=== PATIENT | female | born 1960 | race Caucasian/White ===

== ENCOUNTER 2016-12-27 22:44 | Observation (INO) | payer OTHER ==
[~2016-12-27] VITALS: Ht 157.5 cm; Wt 100.9 kg
[~2016-12-27 22:44] MED LIST: ACET-2404 PO; IBUP200T48 PO; LEVO125T6 PO
[2016-12-27 22:46] VITALS: BP 130/79; PULSE 68; RESP 16; O2SAT 98
--- NOTE | 2016-12-27 23:19 | ED.REPORT ---
HPI-General Illness Date of Service Dec 27, 2016 ED Provider: Mauricio Villanueva MD Patient is a 56 year old female who presents to the ED with epigastric abdominal pain that began after dinner tonight. The patient reports burning pain , which radiates into her back. She reports causing herself to vomit due to the discomfort. Patient reports occasional heartburn, but states that it is infrequent. The patient denies a history of cholecystectomy or pancreatitis. She denies a fever. Nursing Notes Stated Complaint: CHEST PAIN, BACK PAIN, ABDOMINAL PAIN Chief Complaint: Female Abdominal Pain Nursing Notes Reviewed: Yes Allergies: Coded Allergies: No Known Allergies (Verified , 12/27/16) Scheduled Levothyroxine (Levothyroxine) 125 Mcg Tablet 125 MCG PO DAILY Levothyroxine (Levothyroxine) 125 Mcg Tablet 125 MCG PO DAILY Scheduled PRN Acetaminophen (Tylenol Extra Strength) 500 Mg Tablet 500 MG PO PRN PRN PRN For Pain Ibuprofen (Ibuprofen) 200 Mg Tablet 200 MG PO PRN PRN PRN For Pain General Time Seen by MD: 23:19 Chief Complaint Abdominal pain Hx Obtained From: Patient Arrived By: Walk-in Sudden in Onset?: No Onset Occurred: 1 - 4 hours ago Symptom Duration: Since onset Location: : Abdomen Quality: Burning, Painful Radiation: : Back Severity: Current: Moderate Severity: Maximum: Severe Recent Healthcare: No recent doctor visit, No recent hospitalization Similar Sx Previous: No Past Medical History Past Medical History history of left-sided invasive ductal carcinoma s/p lumpectomy and radiation Denies: Pancreatitis Past Surgical History left breast lumpectomy Reports: , Denies: Cholecystectomy Smoking History Smoker Current Status UNK Social History Alcohol Use: "Social" Other Social History: Good social support, Local resident Ambulatory Status Independent Review of Systems Full Review of Systems Constitutional: Denies: Chills, Fever GI: Reports: Abdominal pain, Nausea, Vomiting Musculoskeletal: Reports: Back pain Complete sys rev & neg: except as marked. Physical Exam Vital Signs Vital Signs Date Time Temp Pulse Resp B/P Pulse Ox O2 Delivery O2 Flow Rate FiO2 12/28/16 02:06 36.6 72 18 130/72 95 Room Air 12/27/16 22:46 36.2 68 16 130/79 98 Initial VS: Reviewed Skin: Warm, Dry, No cyanosis Neurologic: Alert, Oriented, Nonfocal Psychiatric: Mood/affect normal, Behavior normal, Normal thought content General/Constitutional: Awake, Alert, No acute distress, Well hydrated Appearance / Presentation: Positive: Uncomfortable Head / Eyes: Normocephalic, PERRL, No scleral icterus ENT: Airway patent, Mucous membranes moist Neck: Supple, Full range of motion Respiratory / Chest: Breath sounds NL, Breath sounds = bilat, No respiratory distress, No rales, No rhonchi, No wheezing, No chest tenderness (no sternal tenderness) Cardiovascular: Heart rate NL, Regular rhythm, No murmurs Abdomen: Soft Tenderness/Guarding/Rebound: Positive: Tender RUQ..., Tender epigastric (upper epigastrium) Upper Extremities Upper Extremity / MS: No swelling, No edema Lower Extremity / Pelvis / MS: No swelling, No edema Interpretation & Diagnostics Lab Results Interpretation Result Diagram: 12/28/16 0032 12/28/16 0032 Test 12/28/16 00:32 12/28/16 00:55 12/28/16 01:18 White Blood Count 8.9th/mm3 (3.8-10.1) Red Blood Count 4.66mil/mm3 (3.90-5.20) Hemoglobin 14.4g/dL (12.0-15.6) Hematocrit 43.0% (35.0-46.0) Mean Corpuscular Volume 92.3fL (81-100) Mean Corpuscular Hemoglobin 30.9pg (27.0-35.0) Mean Corpuscular Hemoglobin Concent 33.5% (32.0-37.0) Red Cell Distribution Width 12.9% (12.3-15.4) Platelet Count 169bil/L (150-400) Neutrophils (%) (Auto) 85.8% (40-74) Lymphocytes (%) (Auto) 9.4% (14-46) Monocytes (%) (Auto) 3.3% (4-12) Eosinophils (%) (Auto) 0.6% (0-5) Basophils (%) (Auto) 0.2% (0-3) Sodium Level 139mEq/L (134-144) Potassium Level 4.5mEq/L (3.5-5.2) Chloride Level 100mEq/L (97-108) Carbon Dioxide Level 25mmol/L (18-29) Blood Urea Nitrogen 14mg/dL (6-24) Creatinine 0.64mg/dL (0.57-1.00) Estimat Glomerular Filtration Rate 139mL/min (>59) Glucose Level 131mg/dL (60-99) Calcium Level 9.4mg/dL (8.5-10.1) Magnesium Level 2.0mg/dL (1.6-2.6) Total Bilirubin 1.0mg/dL (0.0-1.2) Aspartate Amino Transf (AST/SGOT) 106U/L (0-50) Alanine Aminotransferase (ALT/SGPT) 75U/L (0-32) Alkaline Phosphatase 83U/L (25-150) Total Protein 7.1g/dL (6.4-8.4) Albumin 4.2g/dL (3.4-5.0) Lipase 21U/L (13-60) Prothrombin Time 9.7sec (8.1-12.5) Prothromb Time International Ratio 0.91ratio Lactic Acid Level 2.6mmol/L (0.4-2.0) Urine Color Yellow (YELLOW) Urine Appearance Clear (CLEAR,HAZY) Urine pH 8.0 (5.0-8.0) Urine Specific [place] 1.015 (1.003-1.035) Urine Protein Negativemg/dL (NEG,TRACE) Urine Glucose (UA) Negativemg/dL (NEGATIVE) Urine Ketones Negativemg/dL (NEGATIVE) Urine Occult Blood Negative (NEGATIVE) Urine Nitrite Negative (NEGATIVE) Urine Bilirubin Negative (NEGATIVE) Urine Urobilinogen Normalmg/dL (NORMAL) Urine Leukocyte Esterase Negative (NEGATIVE) Urine RBC 0-2/hpf (0-2) Urine WBC 0-5/hpf (0-5) Urine Epithelial Cells Occasional/hpf (NONE-MOD) Urine Crystals None seen (NONE SEEN) Urine Bacteria None/hpf (NONE-FEW) Urine Hyaline Casts None/lpf (NONE) Urine Granular Casts None seen (NONE SEEN) Urine Waxy Casts None seen (NONE SEEN) Urine Red Blood Cell Casts None seen (NONE SEEN) Urine White Blood Cell Casts None seen (NONE SEEN) Urine Mucus None seen (None Seen) Urine Trichomonas None seen (NONE SEEN) Urine Yeast None (NONE SEEN) Urinalysis Comment None Urine Culture Reflexed Not indicated CT Abd / Pelvis Interpretation CONCLUSION: Cholelithiasis with findings that may be consistent with acute cholecystitis. Ultrasound correlation may be helpful for confirmation. Colonic diverticulosis. Radiologist: Rianna Briseno MD 12/28/2016 - 1:54:42 AM PST Study type: Abdominal CT IV contrast Interpretation / Wet Read by: Interpret - Radiologist Re-Eval/Medical Decision Med Decision/Clinical Course 56-year-old presents with right upper quadrant and epigastric abdominal pain radiated through to her back. Spent persistent now for more than four hours. Labs are notable for elevated transaminases but a normal bilirubin and normal alkaline phosphatase. CT shows a gallstone in the neck of the gallbladder, thickening of the gallbladder wall and localized stranding consistent with cholecystitis. She is admitted to surgical service for surgical management. Source of Hx: Old records Time of Eval: 02:09 Patient Status: Condition improved Re-Evaluation/Progress Note: Rechecked the patient to discuss the results of her labs and CT scan. Findings are suggest of acute cholecystitis. She will need to be admitted to the hospital for surgery. Patient understands and agrees with this plan. All questions were addressed. Consultation : Referral / Consult Name: Vibha Nolan MD Consulted With: Surgeon Call Returned at: 03:11 Reiki Practitioner: Will see patient, Agrees with eval, Agrees with plan, Accepts admit Note: Spoke with Dr. Nolan, surgeon, who agrees to accept admit. Counseled Regarding: Diagnosis, Lab results, Need for admission Discharge & Departure Primary Impression: Acute cholecystitis Additional Impression: Cholelithiasis Cholelithiasis location: gallbladder Cholecystitis presence: with cholecystitis Cholecystitis acuity: acute Biliary obstruction: without biliary obstruction Qualified Code: K80.00 - Calculus of gallbladder with acute cholecystitis without obstruction Disposition: ADMITTED TO HOSPITAL Discharge Condition All VS Reviewed: Yes Condition: Stable Referrals: Yosef Sutherland MD (PCP) Leo Attestation Portions of this note were transcribed by Emilie Palma. I, Dr. Villanueva personally performed the history, physical exam and medical decision-making; I reviewed and confirmed the accuracy of the information in the transcribed note. Signed by: Leo Anderson, 12/28/2016 [id number] copies to: Yosef Sutherland MD, Christopher W MD Dec 27, 2016 23:19 Emilie Palma 3, 2017 23:36
[2016-12-27] MEDS ORDERED: 0.9% Sodium Chloride 1,000 ML IV ONE (23:32)
[2016-12-27] MEDS ORDERED: Pantoprazole 4 mg/mL 10 mL Inj IVPUSH ONE (23:35)
[2016-12-27] MEDS ORDERED: HYDROmorphone 1 mg/mL Inj IVPUSH PRN (23:35)
[2016-12-27] MEDS ORDERED: Ondansetron 2 mg/mL 2 mL Inj IVPUSH ONE (23:35)
[2016-12-28] VITALS (9 sets, daily range): BP systolic 111–146; BP diastolic 70–77; PULSE 66–97; RESP 16–20; O2SAT 95–98
[2016-12-28 00:48] LABS: BASOPHILS % (AUTO) 0.2 % (0-3); EOSINOPHILS % (AUTO) 0.6 % (0-5); MONOCYTES % (AUTO) 3.3 % (4-12); Mean Corpuscular Hemoglobin 30.9 pg (27.0-35.0); Mean Corpuscular Volume 92.3 fL (81-100); NEUTROPHILS % (AUTO) 85.8 % (40-74); Platelet Count 169 bil/L (150-400)
[2016-12-28 01:19] LABS: INR 0.91 ratio
[2016-12-28 01:35] LABS: APPEARANCE,URINE CLEAR (CLEAR,HAZY); COLOR,URINE YELLOW (YELLOW); OCCULT BLOOD,URINE NEGATIVE (NEGATIVE); UROBILINOGEN,URINE NORMAL (NORMAL)
[2016-12-28] MEDS ORDERED: Piperacillin-Tazo 3.375 Gm Inj 3.375 GM in Dextrose 5% Minibag Plus 50 ML IV ONE (02:45)
[2016-12-28] MEDS ORDERED: Ondansetron 2 mg/mL 2 mL Inj IVPUSH PRN ×3 (03:55→10:05)
[2016-12-28] MEDS ORDERED: MetoCLOpramide 5 mg/mL 2 mL Inj IVPUSH PRN ×2 (03:55→10:05)
[2016-12-28] MEDS ORDERED: HYDROmorphone PCA 0.2 mg/mL 30 mL Inj IV PRN (03:55)
--- NOTE | 2016-12-28 04:24 | NUR ---
Admit Patient arrived at 0424 via gurney, able to ambulate self into bed. C/O chest pressure, but tolerable. A&O, able to make needs known. Oriented to room. NPO in preparation for surgery in the am
[2016-12-28] MEDS ORDERED: LEVO125T6 PO (05:05)
[2016-12-28] MEDS: Lactated Ringer's 1,000 ML IV SCH ×2 (06:03→10:04)
--- NOTE | 2016-12-28 08:26 | DRSVH ---
PROCEDURE: CT ABDOMEN AND PELVIS WITH CONTRAST ([id number]) INDICATIONS: epigastric pain TECHNIQUE: After the administration of intravenous contrast, 5 mm thick sections acquired from the diaphragm to the symphysis. 5 mm coronal and sagittal reformats were acquired. For radiation dose reduction, the following was used: automated exposure control, adjustment of mA and/or kV according to patient siz e. COMPARISON: None. FINDINGS: Image quality: Excellent. ABDOMEN: Lung bases: Lung bases are clear. Heart size is normal. Solid organs: Liver and spleen are normal in size and enhancement. Diffuse fatty infiltration of the liver is noted. Gallbladder contains calcified gallstones. Gallbladder wall is thickened with trace pericholecystic fluid. Findings concerning for acute cholecystitis.. Biliary system is non dilated. Pancreas enhances normally. No adrenal nodules. Kidneys demonstrate normal size and enhancement, w ithout hydronephrosis. Peritoneum and bowel: Bowel loops demonstrate normal wall thickness and caliber. Scattered diverticu la noted in the colon without evidence of diverticulitis. 1.2 cm duodenal lipoma incidentally noted. No free fluid or air. The appendix is normal. Nodes and vessels: No retroperitoneal or mesenteric adenopathy by size criteria. Aorta and inferior vena cava are normal in size. Scattered atherosclerotic calcifications noted in the abdominal pelvic vasculature. Miscellaneous: No ventral hernias. PELVIS: Genitourinary: Bladder wall thickness is normal. Miscellaneous: No inguinal hernias or adenopathy. Bones: No suspicious bony lesions. No vertebral body compression fractures. Spine degenerative disc disease and facet arthropathy are noted. IMPRESSION: 1. Cholelithiasis with gallbladder wall thickening and trace pericholecystic fluid concerning for acu te cholecystitis. Please correlate with clinical data. 2. Hepatic steatosis. 3. Colonic diverticulosis without evidence of diverticulitis. Dictated by: Kaylyn Mueller MD, PhD on 12/28/2016 at 8:20 Approved by: Kaylyn Mueller MD, PhD on 12/28/2016 at 8:24
[2016-12-28] MEDS ORDERED: Piperacillin-Tazo 3.375 Gm Inj 3.375 GM in Dextrose 5% Minibag Plus 50 ML IV SCH (08:30)
--- NOTE | 2016-12-28 09:29 | HP ---
[address] [address] HISTORY AND PHYSICAL PATIENT: SYMONE DUCKWORTH : 1960 MR#: [id number] ADMIT: 12/28/2016 JOB ID: [id number] CHIEF COMPLAINT: Episodic abdominal pain. HISTORY OF PRESENT ILLNESS: The patient is a 56-year-old relatively healthy woman who presented to the emergency department last night with complaint of abdominal pain and burning sensation. She stated that the pain began shortly after eating hot dogs and beans. She experienced some vomiting. When the pain did not resolve, she went to the emergency department. There she was found to have a normal white blood cell count. CT scan of the abdomen and pelvis was obtained which I have personally reviewed. This shows cholelithiasis and some pericholecystic fluid suggestive of possible acute cholecystitis. In retrospect the patient recalls having a similar episode a couple of weeks ago. However, at that time, the pain only lasted for about 30 minutes and then resolved spontaneously. This morning, the patient's pain has resolved. PAST MEDICAL HISTORY: Hypothyroid. MEDICATIONS: Synthroid. ALLERGIES: The patient is not sure whether she has no known allergies or possibly SULFA. PAST SURGICAL HISTORY: 1. Left breast partial mastectomy. 2. x2. FAMILY HISTORY: Family history significant for an uncle who had cholecystitis. 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 REVIEW OF SYSTEMS: Full review of systems is obtained and negative. Her pain has resolved. She has no nausea or vomiting. She has no other symptoms. PHYSICAL EXAMINATION: This morning, she is afebrile with a temperature of 37 degrees, heart rate 66 beats per minute. Blood pressure is 143/72. She is satting 97% on room air with a respiratory rate of 20 breaths per minute. In general, she appears comfortable in no acute distress. Cardiovascular: She has a regular rate and rhythm with no appreciated murmurs, rubs, gallops. Pulmonary: Her lungs clear to auscultation bilaterally. Vascular: She has no carotid bruit. Neck: She has no thyromegaly. Lymph: She has no cervical lymphadenopathy. GI: Her abdomen is soft, nondistended. She does have some focal tenderness to palpation in the right upper quadrant. Extremities: Warm without significant edema. Skin is warm without rash. Neuro is grossly intact. Psych: Pleasant and appropriate. LABORATORIES: Upon admission just after midnight, her white blood cell count was 8.9, hematocrit was 43. Her platelet count was 169. Her creatinine was 0.64. Her bilirubin was 1. AST and ALT were mildly elevated at 106 and 75. Alk phos was normal at 83. INR was 0.91. IMAGING: CT scan is personally reviewed and as per the HPI. ASSESSMENT AND PLAN: This is a 56-year-old female with episodic abdominal pain suggestive of symptomatic cholelithiasis. I discussed the diagnosis of symptomatic cholelithiasis with the patient and indications for surgery. At this point she does not appear to have acute cholecystitis as her pain has resolved. However, it is advisable to remove her gallbladder. I offered her cholecystectomy today versus elective date down the road. She prefers to move forward today. This will be done as soon as the operating room is available.
--- NOTE | 2016-12-28 09:45 | NUR ---
To OR Patient went to OR for Surgery approx 0900. Report to OR nurse given. NPO after midnight.
[2016-12-28] MEDS ORDERED: Bupivacaine 0.5%/EPI 50 mL Inj INFILTRATE ONE (10:01)
[2016-12-28] MEDS ORDERED: Lactated Ringer's 500 ML IV PRN (10:01)
[2016-12-28] MEDS ORDERED: Lactated Ringer's 1,000 ML IV SCH (10:01)
--- NOTE | 2016-12-28 10:01 | PCM.HPANE ---
Patient Data Date of Service: Dec 28, 2016 Surgeon Admitting Provider:Vibha Nolan MD Attending Provider:Vibha Nolan MD Primary Care Physician:Yosef Sutherland MD Other Provider: Reason for Visit Acute Polycholecystitis Ht/WT & BMI Height (Feet): 5 Height (Inches): 2.00 Weight (Kilograms): 100.900 Body Mass Index 40.93 Allergies Coded Allergies: No Known Allergies (Verified , 12/27/16) Past Anesthesia History Anesthesia History: Positive for:: Anesthesia Reactions (Difficult to awaken.) Diabetes History Hx Diabetes?: No MRSA MRSA: No Medications Reported Medications Levothyroxine 125 Mcg [id number] Mcg PO DAILY For Thyroid Replacement Ref 0 12/28/16 Levothyroxine 125 Mcg [id number] Mcg PO DAILY For Thyroid Replacement Ref 0 04/01/14 Ibuprofen 200 Mg [id number] Mg PO PRN PRN For Pain Ref 0 04/01/14 Acetaminophen (Tylenol Extra Strength)500 Mg [id number] Mg PO PRN PRN For Pain 04/01/14 History History of ENT Problems?: No Hx of Heart Problems?: No Cardiovascular History: Denies:: Congestive Heart Failure Hypertension Hx of Respiratory Problem?: Yes Respiratory History: Positive for:: Pneumonia (10 years ago) Denies:: Tuberculosis Hx Neurologic Problems?: No Hx of GI Problems?: Yes Gastrointestinal History: Positive for:: Gall Bladder Disease Other GI Pertinent History: Gallbladder inflammation Hx of Problems?: Yes Genitourinary History: Positive for:: Urinary Tract Infection (when younger) Female Hx: Denies:: Currently Endometriosis Pelvic Inflammatory Hx Musculoskeletal Problems?: No Musculoskeletal History: Positive for:: Back Injury Hx of Psycho/Social Problems?: No Hx Surgeries?: Yes Hx Any Other Health Problems?: No Other History: Positive for:: Cancer (Breast CA 2006) Hospitalization (Two births.) Thyroid Disease (Hypo 125mg levo once a day) History Blood Transfusions: Positive for:: Accept Blood Products? Denies:: Blood Transfusions Hx Diabetes: No Hx Alcohol Use: NoHx Substance Use: No Smoking Status: Smoker Current Status UNK Have You Smoked inLast 12 mo: YesApprox How Many Cigarettes/day: 20 Stop/Bang Treated for Sleep Apnea?: No Do You Have a CPAP Machine?: No S-Snoring: Do You Snore Loudly: Yes T-Tired: feel tired, fatigued: Yes O-Obsered: Observed not breath: Yes P-Blood Pressure: treated: No B- Body Mass Index > 35 kg/m2: Yes A- Age over 50: Yes N- Neck Large Circumference: Yes G- Gender Male: No NILAY Total Score: 6 NILAY Risk Assessment: High Risk, =/>3 Yes Risk Assessment Category Category 1A: Patient has history of documented sleep apnea, and HAS NOT received any narcotic, sedative or anesthesia administration during this stay. Category 1B: Patient has history of documented sleep apnea, and HAS received any narcotic , sedative or anesthesia administration during this stay Category 2: Patient has SUSPECTED Obstructive Sleep Apnea, and HAS received any narcotic , sedative or anesthesia administration during this stay. Category 3: Patient has SUSPECTED Obstructive Sleep Apnea and HAS NOT received narcotic, sedative or anesthesia administration during this stay. Category 4: Outpatient in Procedural Areas with known sleep apnea or who screen positive for High Risk via the STOP/BANG questionnaire. Exam Exam Vital Signs Vital Signs Date Time Temp Pulse Resp B/P Pulse Ox O2 Delivery O2 Flow Rate FiO2 12/28/16 04:39 37.0 66 20 143/72 97 Room Air 12/28/16 04:13 36.6 72 18 130/72 95 Room Air 12/28/16 02:06 36.6 72 18 130/72 95 Room Air General Appearance: Alert, Oriented X3, Cooperative HEENT/AIRWAY: MP 3, Neck Movement (Thick, OK extension), Mouth Opening (OK) Lungs: Clear to Auscultation, Normal Air Movement Heart: Regular Rate/Rhythm, Normal S1, Normal S2 Meds/Labs/Diagnostics Admission Meds Current Medications Sodium Chloride (Normal Saline) 1,000 ml @ 0 mls/hr Q0M ONCE IV Last administered on 12/28/16 00:59; Start 12/27/16 at 23:32; Stop 12/27/16 at 23:35; Status DC Pantoprazole (Protonix Inj) 40 mg ONCE ONCE IVPUSH Last administered on 00:59; Start 12/27/16 at 23:35; Stop 12/27/16 at 23:36; Status DC Ondansetron HCl 8 mg 8 mg ONCE ONCE IVPUSH Last administered on 12/28/16 00:59 ; Start 12/27/16 at 23:35; Stop 12/27/16 at 23:36; Status DC Piperacillin Sod/ Tazobactam Sod 3.375 gm/Dextrose/ Water 50 ml @ 100 mls/hr ONCE ONCE IV Last administered on 12/28/16 03:00; Start 12/28/16 at 02:45; Stop 12/28/16 at 03:14; Status DC Lactated Ringer's 1,000 ml @ 100 mls/hr Q10H IV Last administered on 12/28/16 06:03; Start 12/28/16 at 03:54 Piperacillin Sod/ Tazobactam Sod/ Dextrose/Water (Zosyn 3.375 Gm Inj/D5W Minibag Plus) 50 ml @ 12.5 mls/hr Q8 IV Last administered on 12/28/16 08:01; Start 12/28/16 at 08:30 Labs Test 12/28/16 00:32 12/28/16 00:55 12/28/16 01:18 White Blood Count 8.9th/mm3 (3.8-10.1) Red Blood Count 4.66mil/mm3 (3.90-5.20) Hemoglobin 14.4g/dL (12.0-15.6) Hematocrit 43.0% (35.0-46.0) Mean Corpuscular Volume 92.3fL (81-100) Mean Corpuscular Hemoglobin 30.9pg (27.0-35.0) Mean Corpuscular Hemoglobin Concent 33.5% (32.0-37.0) Red Cell Distribution Width 12.9% (12.3-15.4) Platelet Count 169bil/L (150-400) Neutrophils (%) (Auto) 85.8% (40-74) Lymphocytes (%) (Auto) 9.4% (14-46) Monocytes (%) (Auto) 3.3% (4-12) Eosinophils (%) (Auto) 0.6% (0-5) Basophils (%) (Auto) 0.2% (0-3) Sodium Level 139mEq/L (134-144) Potassium Level 4.5mEq/L (3.5-5.2) Chloride Level 100mEq/L (97-108) Carbon Dioxide Level 25mmol/L (18-29) Blood Urea Nitrogen 14mg/dL (6-24) Creatinine 0.64mg/dL (0.57-1.00) Estimat Glomerular Filtration Rate 139mL/min (>59) Glucose Level 131mg/dL (60-99) Calcium Level 9.4mg/dL (8.5-10.1) Magnesium Level 2.0mg/dL (1.6-2.6) Total Bilirubin 1.0mg/dL (0.0-1.2) Aspartate Amino Transf (AST/SGOT) 106U/L (0-50) Alanine Aminotransferase (ALT/SGPT) 75U/L (0-32) Alkaline Phosphatase 83U/L (25-150) Total Protein 7.1g/dL (6.4-8.4) Albumin 4.2g/dL (3.4-5.0) Lipase 21U/L (13-60) Prothrombin Time 9.7sec (8.1-12.5) Prothromb Time International Ratio 0.91ratio Lactic Acid Level 2.6mmol/L (0.4-2.0) Urine Color Yellow (YELLOW) Urine Appearance Clear (CLEAR,HAZY) Urine pH 8.0 (5.0-8.0) Urine Specific [place] 1.015 (1.003-1.035) Urine Protein Negativemg/dL (NEG,TRACE) Urine Glucose (UA) Negativemg/dL (NEGATIVE) Urine Ketones Negativemg/dL (NEGATIVE) Urine Occult Blood Negative (NEGATIVE) Urine Nitrite Negative (NEGATIVE) Urine Bilirubin Negative (NEGATIVE) Urine Urobilinogen Normalmg/dL (NORMAL) Urine Leukocyte Esterase Negative (NEGATIVE) Urine RBC 0-2/hpf (0-2) Urine WBC 0-5/hpf (0-5) Urine Epithelial Cells Occasional/hpf (NONE-MOD) Urine Crystals None seen (NONE SEEN) Urine Bacteria None/hpf (NONE-FEW) Urine Hyaline Casts None/lpf (NONE) Urine Granular Casts None seen (NONE SEEN) Urine Waxy Casts None seen (NONE SEEN) Urine Red Blood Cell Casts None seen (NONE SEEN) Urine White Blood Cell Casts None seen (NONE SEEN) Urine Mucus None seen (None Seen) Urine Trichomonas None seen (NONE SEEN) Urine Yeast None (NONE SEEN) Urinalysis Comment None Urine Culture Reflexed Not indicated Plan Impression Patient chart reviewed, patient interviewed and anesthestic plan with risks, benefits, and alternatives discussed, and informed consent obtained. NPO Status: > 8 hours ASA Physical Status: ASA3 Severe Disease Anesthetic Plan: GA Bene/Risks/Altern/Consents: Yes HP Complete Prior to Induction: Yes Shashi Goldstein MD Dec 28, 2016 08:59
[2016-12-28] MEDS ORDERED: Dexamethasone 4 mg/mL Inj IVPUSH PRN (10:05)
[2016-12-28] MEDS ORDERED: Labetalol 5 mg/mL 4 mL Inj IV PRN (10:05)
[2016-12-28] MEDS ORDERED: hydrALAZINE 20 mg/mL Inj IVPUSH PRN (10:05)
[2016-12-28] MEDS ORDERED: HYDROmorphone 1 mg/mL Inj IVPUSH PRN (10:05)
[2016-12-28] MEDS ORDERED: Atropine 0.4 mg/mL Inj IVPUSH PRN (10:05)
[2016-12-28] MEDS ORDERED: EPHEDrine Sulfate 50 mg/mL Inj IVPUSH PRN (10:05)
[2016-12-28] MEDS ORDERED: fentaNYL-PF 50 mCg/mL 2 mL Inj IVPUSH PRN (10:05)
[2016-12-28] MEDS ORDERED: Phenylephrine 10,000 mCg/mL Inj IVPUSH PRN (10:05)
--- NOTE | 2016-12-28 10:46 | PCM.ANEP1 ---
Post Anesthesia Phase 1 PACU Phase 1 Assessment Date of Service: Dec 28, 2016 Vital Signs Vital Signs Date Time Temp Pulse Resp B/P Pulse Ox O2 Delivery O2 Flow Rate FiO2 12/28/16 10:40 36.8 88 20 146/70 97 Simple Mask 8 12/28/16 04:39 37.0 66 20 143/72 97 Room Air 12/28/16 04:13 36.6 72 18 130/72 95 Room Air Anesthetic Administered: GA Level of Alertness: Sleepy, easy to arouse GUERRERO's with Equal Strength: Yes Pain: No Nausea or Vomiting: No Oxygen Delivery: Simple Mask Lungs: Normal Air Movement Shashi Goldstein MD Dec 28, 2016 10:46
--- NOTE | 2016-12-28 10:51 | PCM.DISURG ---
Surgical Discharge Instruction Date of Service Dec 28, 2016 Dates of Hospitalization Date of Hospital Admission Dec 28, 2016 at 03:36 Providers Admitting Physician: Vibha Nolan MD Primary Care Physician: Yosef Sutherland MD Attending Physician: Vibha Nolan MD Discharge Diagnosis Discharge Diagnosis cholecystitis Diet Discharge Diet: No restrictions Activity Discharge Activity-General: Be up and about, No driving while taking narcotic Dressing and Incisional Care Dressing Care: Allow Steri Stripes to fall off, Remove outer dressing after 24 hrs Hygiene: May shower, NO bathtub, hot tub or whirlpool Follow Up Plan Follow Up Plan f/u with Zoraida in 2 weeks Call your provider for: Fever, Chills, Increasing abdominal pain, Wound redness Eddie Palacios MD Dec 28, 2016 10:51
[2016-12-28] MEDS ORDERED: OXYC1TAB24 PO (10:54)
[2016-12-28] MEDS ORDERED: oxyCODONE-Acetamin 5-325 mg Tablet PO PRN (10:55)
--- NOTE | 2016-12-28 11:07 | OP ---
[address] [address] OPERATIVE REPORT PATIENT: SYMONE DUCKWORTH : 1960 MR#: [id number] ADMIT: 12/28/2016 JOB ID: [id number] DATE OF SURGERY: 12/28/2016 ANESTHESIA: General. PREOPERATIVE DIAGNOSIS(ES): Symptomatic cholelithiasis. POSTOPERATIVE DIAGNOSIS(ES): Acute cholecystitis. OPERATION: Laparoscopic cholecystectomy. SURGEON: Dr. Eddie Palacios. DIETETIC INTERN: None. COMPLICATIONS: None. ESTIMATED BLOOD LOSS: Minimal. CONDITION: Satisfactory. SPECIMEN: Gallbladder. FINDINGS: The gallbladder appeared acutely inflamed with pericholecystic fluid and edema. INDICATION/SIGNIFICANT HISTORY: The patient is a 56-year-old female who was admitted through the emergency department last night for a complaint of abdominal pain after consuming fatty food. A CT scan was obtained which showed gallbladder wall thickening and pericholecystic fluid. After discussing this morning, she elected to move forward with a cholecystectomy. Her pain had resolved by that time. OPERATIVE TECHNIQUE: The patient was taken into the operating room and placed in the supine position. General anesthesia was administered. She had received broad-spectrum antibiotics. The abdomen was prepped and draped in a standard surgical fashion and a procedural pause performed. Entry was gained the abdomen through a small supraumbilical incision using a 10 mm Optiview trocar. Pneumoperitoneum was achieved without complication. Local anesthetic was injected, followed by insertion of 5 mm ports in the subxiphoid as well as two in the right upper quadrant. There were some adhesions from the omentum to the gallbladder which were taken down using electrocautery. The gallbladder was then grasped and lifted cephalad and dissection begun to identify cystic duct and cystic artery. Critical view of safety was achieved. A single clip was placed on the artery and the artery was taken with electrocautery. Three clips were then placed on the duct and the duct was taken sharply. The remainder of the dissection of the gallbladder off the cystic plate was then completed. The gallbladder was inadvertently entered during this dissection. There was very limited spillage of bile. The gallbladder was placed in an EndoCatch bag and removed through the umbilical port site. The surgical bed was then copiously irrigated and found to be completely hemostatic and clean. The umbilical fascia was then closed using 0 PDS suture with a laparoscopic suture passer. The lateral ports removed under direct visualization followed by release of pneumoperitoneum and removal of the remaining port. Skin was closed using 4-0 Monocryl. The entire procedure was well tolerated without complication.
--- NOTE | 2016-12-28 11:23 | NUR ---
back from OR Report received from OR nurse. patient will be discharging after recovers from anesthesia and received prescription for PRN pain medication. Diet advance as tolerated. Stable vital signs. GAS MANAGER pump discontinued per doctor.
--- NOTE | 2016-12-28 11:45 | PCM.ANEP2 ---
Post Anesthesia Evaluation ASA/CMS Post Anesthesia Date of Service: Dec 28, 2016 VS in Patient's Normal Range?: Yes Resp Stable; Airway Patent?: Yes CV Function & Hydration Stable: Yes Mental Status Recovered?: Yes Pain control Satisfactory?: Yes N/V Control Satisfactory?: Yes Shashi Goldstein MD Dec 28, 2016 11:45
[2016-12-28] MEDS ORDERED: Succinylcholine Chloride 20 mg/mL 5 mL Inj ONE (15:38)
[2016-12-28] MEDS ORDERED: MetoCLOpramide 5 mg/mL 2 mL Inj ONE (15:38)
[2016-12-28] MEDS ORDERED: Propofol 10,000 mCg/mL 20 mL Inj ONE (15:38)
[2016-12-28] MEDS ORDERED: Glycopyrrolate 0.2 mg/mL 5 mL Inj ONE (15:38)
[2016-12-28] MEDS ORDERED: Neostigmine 1 mg/mL 5 mL Inj ONE (15:38)
[2016-12-28] MEDS ORDERED: fentaNYL-PF 50 mCg/mL 2 mL Inj ONE (15:38)
[2016-12-28] MEDS ORDERED: Dexamethasone 4 mg/mL Inj ONE (15:38)
[2016-12-28] MEDS ORDERED: EPHEDrine/NS 5 mg/mL 5 mL Syringe ONE (15:38)
[2016-12-28] MEDS ORDERED: Ondansetron 2 mg/mL 2 mL Inj ONE (15:38)
[2016-12-28] MEDS ORDERED: Phenylephrine/NS-PF 100 mCg/mL 5 mL Syringe IVPUSH ONE (15:38)
[2016-12-28] MEDS ORDERED: Lidocaine PF 1% 30 mL Inj ONE (15:38)
[2016-12-28] MEDS ORDERED: Rocuronium 10 mg/mL 5 mL Inj ONE (15:38)
--- NOTE | 2016-12-28 15:40 | NUR ---
Discharged patient is alert and oriented X3. Able to make needs known. Able to tolerated clear fluids and 2 cups of chicken broth with out swallowing difficulty and nausea/vomiting. patient walked in the [address] with out any difficulty. stable gait. stable vital signs. oxygen 95% with out nasal cannula. PRN pain medication given as ordered for pain to right abdomen/surgical site for pain 01/03 with effective results before patient walked in the [address] way. Able to void independently to the bathroom clear yellow urine. IV to the right upper arm removed with out any difficulty. Reviewed discharge paperwork and discharge dressing instructions with patient and understood. Reviewed follow up with Dr. Conway per discharge orders and office number was provided to call. patient discharged approx 1535 and accompanied via wheel chair with nursing staff and family.
--- NOTE | 2016-12-30 12:38 | PCM.DC.SUR ---
Discharge Summary Date of Service: Date of Hospital Admission: Dec 28, 2016 at 03:36 Date of Discharge: 12/28/2016 Diagnosis at Time of Discharge Primary diagnosis: Acute cholecystitis Secondary diagnoses: Hypothyroidism Problems: Operation Laparoscopic cholecystectomy. Brief History and Physical: The patient is a 56-year-old relatively healthy woman who presented to the emergency department last night with complaint of abdominal pain and burning sensation. She stated that the pain began shortly after eating hot dogs and beans. She experienced some vomiting. When the pain did not resolve, she went to the emergency department. There she was found to have a normal white blood cell count. CT scan of the abdomen and pelvis was obtained which I have personally reviewed. This shows cholelithiasis and some pericholecystic fluid suggestive of possible acute cholecystitis. In retrospect the patient recalls having a similar episode a couple of weeks ago. However, at that time, the pain only lasted for about 30 minutes and then resolved spontaneously. This morning, the patient's pain has resolved. Consultants: Dr. Eddie Palacios, General surgery Hospital Course: Report received from OR nurse. patient will be discharging after recovers from anesthesia and received prescription for PRN pain medication. Diet advance as tolerated. Stable vital signs. [employer] DECORATOR pump discontinued per doctor. Patient is alert and oriented X3. Able to make needs known. Able to tolerated clear fluids and 2 cups of chicken broth with out swallowing difficulty and nausea/vomiting. patient walked in the [address]lex[address] way with out any difficulty. stable gait. stable vital signs. oxygen 95% with out nasal cannula. PRN pain medication given as ordered for pain to right abdomen/surgical site for pain 2/ 10 with effective results before patient walked in the [address] way. Able to void independently to the bathroom clear yellow urine. IV to the right upper arm removed with out any difficulty. Reviewed discharge paperwork and discharge dressing instructions with patient and understood. Reviewed follow up with Dr. Conway per discharge orders and office number was provided to call. patient discharged approx 1535 and accompanied via wheel chair with nursing staff and family. Pathology: Pending Disposition: Home Follow-up Plan: Dr. Conway 1-2 weeks Ibuprofen (Ibuprofen) 200 Mg Tablet 200 MG PO PRN PRN PRN For Pain (Reported) Levothyroxine (Levothyroxine) 125 Mcg Tablet 125 MCG PO DAILY (Reported) Levothyroxine (Levothyroxine) 125 Mcg Tablet 125 MCG PO DAILY (Reported) oxyCODONE-Acetaminophen 5-325 mg (oxyCODONE-Acetaminophen 5-325 mg) 1 Each Tablet 1-2 TAB PO Q6H PRN PRN For Pain copies to: Yosef Stuherland MD, Sherri L PA-C Dec 30, 2016 12:38
--- NOTE | 2016-12-31 10:31 | PATH ---
SURGICAL PATHOLOGY Attending Physician:Eddie Palacios MD CASE STATUS: Signed Out PATIENT NAME: SYMONE DUCKWORTH PID: [id number] : 1960 DATE COLLECTED:12/28/2016 00:00 SPECIMEN: Gallbladder CLINICAL HISTORY: CHOLELITHIASIS CHOLECYSTECTOMY 1). GALLBLADDER FINAL DIAGNOSIS: 1.GALLBLADDER: CHOLELITHIASIS WITH ASSOCIATED MILD CHRONIC CHOLECYSTITIS. ICD10 CODE K80.6 GROSS DESCRIPTION: The specimen is received in one formalin filled container labeled with the patient's name, labeled "gallbladder" and consists of an opened 7.5 x 2.5 x 1.5 CM gallbladder. The serosa is smooth. The wall is 0.2-0.5 CM in thickness. The mucosa is a dark posey-brown in color. The lumen contains 5-10 yellow green cobblestone calculi which range in size from 0.2-0.5 CM in greatest dimension. 5 client service representative sections are submitted in one cassette. 12/30/2016 DAC MICRO DESCRIPTION: See diagnosis. ICD-9 CODES: CPT CODES: 1: 06776 Electronically Signed Out Matthew Gregg MD [facility] Pathology [facility] [address], [place] [address] Technical component performed at [facility], [address] [place] [address] Ave[address], [place], [address]
[2017-02-27] MEDS ORDERED: ACET325T51 PO (13:28)
== END 2016-12-28 15:39 | disposition home or self-care (01) ==
LOC: SED 22:44 → OSC 12-28 03:36 → INTOOBSV 12-28 03:36
PROVIDERS: ADMIT Student in an Organized Health Care Education/Training Program; ATTEND General Practice
PROC: 0FT44ZZ Resection of Gallbladder, Percutaneous Endoscopic Approach (ICD-10-PCS; principal; 2016-12-28 09:15)
DX: K80.12 Calculus of gallbladder with acute and chronic cholecystitis without obstruction (principal); E03.9 Hypothyroidism, unspecified; Z85.3 Personal history of malignant neoplasm of breast; Z87.891 Personal history of nicotine dependence
CPT/HCPCS: 36415; 47562; 74177; 80053; 81000; 83605; 83690; 83735; 85025; 85610; 93005; 96361; 96365; 96375; 99285; G0378; J0330; J1100; J2250; J2370; J2405; J2543; J2710; J2765; J3010; J7030; J7120; Q9967